=== PATIENT | male | born 1990 | race Caucasian/White ===

== ENCOUNTER 2019-11-13 01:07 | Emergency (ER) | payer OTHER ==
[~2019-11-13] VITALS: Ht 180.3 cm; Wt 81.6 kg
[2019-11-13 01:07] VITALS: BP 150/88
--- NOTE | 2019-11-13 01:17 | PHYS DOC ---
Adult General Chief Complaint Chief Complaint: ".. I got this red eye... on the Lt.... 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 conjunctivitis. Pt. seen at [facility] on and started on Sulfacetamide and Ketotifen drops. Pt. denies any significant changes in vision. Does have some consensual photophobia. Conjunctivae is injected and there is a small area limbus injection. No obvious cell. No history of specific history of injury. No recent travel. No recent assignments overseas. No history of trauma. No history immunosuppression. Patient up-to-date with vaccinations. Patient does have children but they have not had recent course of pink eye. Review of Systems Review of Systems Constitutional: Denies fever or chills [] Eyes: Denies change in visual acuity, . Patient has complaints of left eye redness . No focal take up of fluorescein on plaque light exam. HENT: Denies nasal congestion or sore throat [] Respiratory: Denies cough or shortness of breath [] Cardiovascular: No additional information not addressed in HPI [] GI: Denies abdominal pain, nausea, vomiting, bloody stools or diarrhea [] : Denies dysuria or hematuria [] Musculoskeletal: Denies back pain or joint pain [] Integument: Denies rash or skin lesions [] Neurologic: Denies headache, focal weakness or sensory changes [] Endocrine: Denies polyuria or polydipsia [] All other systems were reviewed and found to be within normal limits, except as documented in this note. Family History Family History Noncontributory Current Medications Current Medications See nursing for home meds Allergies Allergies No known drug allergies Physical Exam Physical Exam Constitutional: Well developed, well nourished, no acute distress, non-toxic appearance. [] HENT: Normocephalic, atraumatic, bilateral external ears normal, oropharynx moist, no oral exudates, nose normal. [] Eyes: PERRLA, EOMI, conjunctiva injected and left eye, no discharge. [] Neck: Normal range of motion, no tenderness, supple, no stridor. [] Cardiovascular:Heart rate regular rhythm, no murmur [] Lungs & Thorax: Bilateral breath sounds clear to auscultation [] Abdomen: Bowel sounds normal, soft, no tenderness, no masses, no pulsatile masses. [] Skin: Warm, dry, no erythema, no rash. [] Back: No tenderness, no CVA tenderness. [] Extremities: No tenderness, no cyanosis, no clubbing, ROM intact, no edema. [] Neurologic: Alert and oriented X 3, normal motor function, normal sensory function, no focal deficits noted. [] Psychologic: Affect anxious,, judgement normal, mood normal. [] EKG EKG [] Radiology/Procedures Radiology/Procedures [] Course & Med Decision Making Course & Med Decision Making Pertinent Labs and Imaging studies reviewed. (See chart for details) Patient is stop his sulfacetamide drops and start using very small amount of erythromycin ointment 4 times a day. Patient may continue Ketotifen drops. Pt. l follow-up ophthalmology of his choice. Was given the names of Dr Lisa and Dr. Ontiveros. Must see Cristina tomorrow. Impression: 1. Conjunctivitis - Suspect Viral [] Dragon Disclaimer Dragon Disclaimer This electronic medical record was generated, in whole or in part, using a voice recognition dictation system. Departure Departure: Disposition: 01 HOME/RESIDENCE PRIOR TO ADM Condition: STABLE Dragon Disclaimer This chart was dictated in whole or in part using Voice Recognition software in a busy, high-work load, and often noisy Emergency Department environment. It may contain unintended and wholly unrecognized errors or omissions. BRE MCKEON MD Nov 13, 2019 01:17
[2019-11-13] MEDS ORDERED: TETRACAINE 0.5% OPHTH SOLUTION 4ML BOTTLE. ONE (02:51)
[2019-11-13] MEDS ORDERED: FLUORESCEIN 1MG EYE STRIP. ONE (02:51)
[2019-11-13] MEDS: FLUORESCEIN 1MG EYE STRIP. OU ONE (03:10)
[2019-11-13] MEDS: TETRACAINE 0.5% OPHTH SOLUTION 4ML BOTTLE. OU ONE (03:10)
[2019-11-13] MEDS ORDERED: ERYTHROMYCIN 0.5% OPHTH OINTMENT 1GM TUBE. ONE (03:36)
[2019-11-13] MEDS: ERYTHROMYCIN 0.5% OPHTH OINTMENT 1GM TUBE. OS ONE (03:41)
== END 2019-11-13 03:43 | disposition home or self-care (01) ==
LOC: ER 01:07
DX: H10.9 Unspecified conjunctivitis (principal)
CPT/HCPCS: 99284